=== PATIENT | male | born 1980 | race Caucasian/White ===

== ENCOUNTER 2023-06-07 08:28 | Emergency (ER) | payer OTHER ==
[2023-06-07] MEDS ORDERED: LIDOCAINE 5% PATCH TOPICAL ONE (08:53)
[2023-06-07] MEDS ORDERED: KETOROLAC 15 MG/ML 1 ML VIAL IVP STA (08:53)
--- NOTE | 2023-06-07 09:10 | ED ---
Back Pain HPI - General Chief Complaint: Back Pain/Injury Stated Complaint: lower back pain and upper leg/groin pain Time Seen by Provider: 06/07/23 08:40 Source: patient, RN notes reviewed Mode of arrival: ambulatory Limitations: no limitations - History of Present Illness Initial Comments: This is a 42-year-old male who presents to the emergency department for pain to the right lower back and right groin. States that about a week ago he may have accidentally injured his back at work when moving or lifting something heavy. Pain developed to the right lower back, and this was initially manageable, but became increasingly painful prompting him to go to urgent care 2 days ago. They gave him a steroid shot and started him on prednisone, ibuprofen, and muscle relaxants. States that this did seem to help, however last night and into today he suddenly developed severe pain wrapping around to the right lower quadrant and right groin region. Pain is somewhat worse with movement. Denies any associated nausea or vomiting. Also denies any loss of bowel/bladder control or saddle anesthesia. MD Complaint: back pain - Related Data Previous Rx's Medication Instructions Recorded Ketorolac [Toradol] 10 mg PO Q6HR PRN #15 tab 06/07/23 Lidocaine 5% Patch [Lidoderm 5% 1 patch TOPICAL DAILY PRN #30 patch 06/07/23 Patch] Allergies Allergy/AdvReac Type Severity Reaction Status Date / Time No Known Allergies Allergy Verified 06/07/23 08:39 Review of Systems ROS Statement: Those systems with pertinent positive or pertinent negative responses have been documented in the HPI. ROS Other: All systems not noted in ROS Statement are negative. Past Medical History Past Medical History: No Reported History History of Any Multi-Drug Resistant Organisms: None Reported Past Surgical History: Tonsillectomy Past Psychological History: No Psychological Hx Reported Smoking Status: Never smoker Past Alcohol Use History: Occasional Past Drug Use History: None Reported General Exam Limitations: no limitations General appearance: alert, in no apparent distress Head exam: Present: atraumatic, normocephalic, normal inspection Respiratory exam: Present: normal lung sounds bilaterally. Absent: respiratory distress, wheezes, rales, rhonchi, stridor Cardiovascular Exam: Present: regular rate, normal rhythm, normal heart sounds. Absent: systolic murmur, diastolic murmur, rubs, gallop, clicks GI/Abdominal exam: Present: soft, tenderness (RLQ, right groin), normal bowel sounds. Absent: distended, guarding, rebound, rigid Back exam: Present: tenderness (right lower back). Absent: CVA tenderness (R), CVA tenderness (L) Neurological exam: Present: alert, oriented X3, CN II-XII intact Psychiatric exam: Present: normal affect, normal mood Skin exam: Present: warm, dry, intact, normal color. Absent: rash Course Vital Signs 06/07/23 06/07/23 06/07/23 08:35 10:00 11:00 Temperature 98.6 F 98.5 F Pulse Rate 70 64 62 Respiratory 18 16 16 Rate Blood Pressure 173/104 133/65 137/78 O2 Sat by Pulse 100 99 100 Oximetry Medical Decision Making - Medical Decision Making This is a 42-year-old male who presents to the emergency department for lower back and abdominal pain. Was pt. sent in by a medical professional or institution? @ -No Did you speak to anyone other than the patient for history? @ -No Did you review nursing and triage notes? @ -Yes, and I agree, it is accurate with regards to the patient's symptoms. Were old charts reviewed? @ -No Differential Diagnosis? @ -Differential Back Pain: Strain, zoster, cauda equina syndrome, epidural abscess, vertebral osteomyelitis, discitis, fracture, subluxation, disc herniation, DJD, spinal stenosis, dissection, AAA, pancreatitis, peptic ulcer disease, pyelonephritis, kidney stone, this is not meant to be an all-inclusive list. EKG interpreted by me (3pts min.)? @ -Not obtained X-rays interpreted by me (1pt min.)? @ -Not obtained CT interpreted by me (1pt min.)? @ -Computed tomography scan of the abdomen and pelvis obtained. My interpretation identifies no evidence of bowel wall thickening or free air. U/S interpreted by me (1pt. min.)? @ -Not obtained What testing was considered but not performed? (CT, X-rays, U/S, labs)? Why? @ -None What meds were considered but not given? Why? @ -None Did you discuss the management of the patient with other professionals? @ -No Did you reconcile home meds? @ -No Was smoking cessation discussed for >3mins.? @ -No Was critical care preformed (if so, how long)? @ -No Were there social determinants of health that impacted care today? How? (Homelessness, low income, unemployed, alcoholism, drug addiction, transportation, low edu. Level, literacy, decrease access to med. care, fdc, rehab)? @ -No Was there de-escalation of care discussed even if they declined? (Discuss DNR or withdrawal of care, Hospice)? @ -No What co-morbidities impacted this encounter? (DM, HTN, Smoking, COPD, CAD, Cancer, CVA, Hep., AIDS, mental health diagnosis, sleep apnea, morbid obesity)? @ -Morbid obesity Was patient admitted / discharged? @ -Discharged. Lab work obtained revealing leukocytosis with a white blood cell count of 13, which is likely secondary to steroid use. Lab work was otherwise unremarkable. Computed tomography scan of the abdomen and pelvis obtained. This revealed a gallstone without any other acute process to account for the patient's symptoms. Findings reviewed with the patient. He was not exhibiting any right upper quadrant pain. He was however made aware of this and that if he does, this could very well be the cause and he should have this evaluated. Symptoms were very well controlled with Toradol and a lidocaine patch in the emergency department. Prescription for Toradol and lidocaine patches provided with dosing instructions reviewed. He was otherwise discharged home in stable condition with instructions to have close follow-up with his primary care provider. Undiagnosed new problem with uncertain prognosis? @ -None Drug Therapy requiring intensive monitoring for toxicity (Heparin, Nitro, Insulin, Cardizem)? @ -None Were any procedures done? @ -None Diagnosis/symptom? @ -Lumbar strain Acute, or Chronic, or Acute on Chronic? @ -Acute Uncomplicated (without systemic symptoms) or Complicated (systemic symptoms)? @ -Uncomplicated Side effects of treatment? @ -None Exacerbation, Progression, or Severe Exacerbation] @ -Not applicable Poses a threat to life or bodily function? @ -Unlikely Return precautions reviewed in depth, the patient is instructed to return to the emergency department with any new, worsening, or concerning symptoms. Patient verbalized understanding. This case was discussed in detail with the attending ED physician, Dr. Hatfield. Presentation, findings, and treatment plan discussed in detail as well. - Lab Data Result diagrams: 06/07/23 09:07 06/07/23 09:07 Lab Results 06/07/23 06/07/23 06/07/23 Range/Units 09:07 09:07 09:07 WBC 13.0 H (3.8-10.6) k/uL RBC 4.90 (4.30-5.90) m/uL Hgb 14.7 (13.0-17.5) gm/dL Hct 44.4 (39.0-53.0) % MCV 90.7 (80.0-100.0) fL MCH 30.0 (25.0-35.0) pg MCHC 33.1 (31.0-37.0) g/dL RDW 13.5 (11.5-15.5) % Plt Count 275 (150-450) k/uL MPV 8.2 Neutrophils % 72 % Lymphocytes % 22 % Monocytes % 3 % Eosinophils % 1 % Basophils % 1 % Neutrophils # 9.4 H (1.3-7.7) k/uL Lymphocytes # 2.8 (1.0-4.8) k/uL Monocytes # 0.5 (0-1.0) k/uL Eosinophils # 0.1 (0-0.7) k/uL Basophils # 0.1 (0-0.2) k/uL Sodium 137 (137-145) mmol/L Potassium 4.4 (3.5-5.1) mmol/L Chloride 105 (98-107) mmol/L Carbon Dioxide 22 (22-30) mmol/L Anion Gap 10 mmol/L BUN 17 (9-20) mg/dL Creatinine 0.67 (0.66-1.25) mg/dL Est GFR (CKD-EPI)AfAm >90 (>60 ml/min/1.73 sqM) Est GFR (CKD-EPI)NonAf >90 (>60 ml/min/1.73 sqM) Glucose 102 H (74-99) mg/dL Plasma Lactic Acid Evan (0.7-2.0) mmol/L Calcium 9.2 (8.4-10.2) mg/dL Total Bilirubin 0.9 (0.2-1.3) mg/dL AST 40 (17-59) U/L ALT 38 (4-49) U/L Alkaline Phosphatase 63 (38-126) U/L C-Reactive Protein 0.8 (<1.0) mg/dL Total Protein 7.5 (6.3-8.2) g/dL Albumin 4.3 (3.5-5.0) g/dL Urine Color Light Yellow Urine Appearance Clear (Clear) Urine pH 6.5 (5.0-8.0) Ur Specific [place] >1.050 H (1.001-1.035) Urine Protein Trace H (Negative) Urine Glucose (UA) Negative (Negative) Urine Ketones Negative (Negative) Urine Blood Negative (Negative) Urine Nitrite Negative (Negative) Urine Bilirubin Negative (Negative) Urine Urobilinogen <2.0 (<2.0) mg/dL Ur Leukocyte Esterase Negative (Negative) 06/07/23 Range/Units 09:07 WBC (3.8-10.6) k/uL RBC (4.30-5.90) m/uL Hgb (13.0-17.5) gm/dL Hct (39.0-53.0) % MCV (80.0-100.0) fL MCH (25.0-35.0) pg MCHC (31.0-37.0) g/dL RDW (11.5-15.5) % Plt Count (150-450) k/uL MPV Neutrophils % % Lymphocytes % % Monocytes % % Eosinophils % % Basophils % % Neutrophils # (1.3-7.7) k/uL Lymphocytes # (1.0-4.8) k/uL Monocytes # (0-1.0) k/uL Eosinophils # (0-0.7) k/uL Basophils # (0-0.2) k/uL Sodium (137-145) mmol/L Potassium (3.5-5.1) mmol/L Chloride (98-107) mmol/L Carbon Dioxide (22-30) mmol/L Anion Gap mmol/L BUN (9-20) mg/dL Creatinine (0.66-1.25) mg/dL Est GFR (CKD-EPI)AfAm (>60 ml/min/1.73 sqM) Est GFR (CKD-EPI)NonAf (>60 ml/min/1.73 sqM) Glucose (74-99) mg/dL Plasma Lactic Acid Evan 1.4 (0.7-2.0) mmol/L Calcium (8.4-10.2) mg/dL Total Bilirubin (0.2-1.3) mg/dL AST (17-59) U/L ALT (4-49) U/L Alkaline Phosphatase (38-126) U/L C-Reactive Protein (<1.0) mg/dL Total Protein (6.3-8.2) g/dL Albumin (3.5-5.0) g/dL Urine Color Urine Appearance (Clear) Urine pH (5.0-8.0) Ur Specific [place] (1.001-1.035) Urine Protein (Negative) Urine Glucose (UA) (Negative) Urine Ketones (Negative) Urine Blood (Negative) Urine Nitrite (Negative) Urine Bilirubin (Negative) Urine Urobilinogen (<2.0) mg/dL Ur Leukocyte Esterase (Negative) - Radiology Data Radiology results: report reviewed, image reviewed Disposition Clinical Impression: Strain of lumbar region, Gallstone Disposition: HOME SELF-CARE Instructions (If sedation given, give patient instructions): Low Back Strain (ED), Acute Low Back Pain (ED) Additional Instructions: Return to the emergency department with any new, worsening, or concerning symptoms. You can take the Toradol with Tylenol up to every 6 hours as needed for pain relief. However, if you choose to take the Toradol, do not take any other anti-inflammatories such as ibuprofen, take one or the other. You can apply the lidocaine patches daily as well for additional symptomatic management. Try to avoid excess bending and lifting for the meantime to reduce the risk of symptoms worsening or recurring. Follow up with your primary care provider in 1-2 days. Prescriptions: Lidocaine 5% Patch [Lidoderm 5% Patch] 1 patch TOPICAL DAILY PRN #30 patch PRN Reason: Pain Ketorolac [Toradol] 10 mg PO Q6HR PRN #15 tab PRN Reason: Pain Is patient prescribed a controlled substance at d/c from ED?: No Referrals: Valeria Apple MD [Primary Care Provider] - 1-2 days
[2023-06-07 09:33] LABS: Basophils # (A) 0.1 k/uL (0-0.2); Basophils % (A) 1 %; Eosinophils # (A) 0.1 k/uL (0-0.7); Eosinophils % (A) 1 %; HCT 44.4 % (39.0-53.0); HGB 14.7 gm/dL (13.0-17.5); Lymphocytes # (A) 2.8 k/uL (1.0-4.8); Lymphocytes % (A) 22 %; MCHC 33.1 g/dL (31.0-37.0); MCV 90.7 fL (80.0-100.0); Mean Platelet Volume 8.2; Monocytes # (A) 0.5 k/uL (0-1.0); Monocytes % (A) 3 %; Neutrophils # (A) 9.4 k/uL (1.3-7.7); Neutrophils % (A) 72 %; Platelet Count 275 k/uL (150-450); RDW 13.5 % (11.5-15.5)
[2023-06-07 10:19] LABS: ALT 38 U/L (4-49); African American GFR (CKD) >90 (>60 ml/min/1.73 sqM); Albumin 4.3 g/dL (3.5-5.0); Anion Gap 10 mmol/L; Blood Urea Nitrogen 17 mg/dL (9-20); C Reactive Protein 0.8 mg/dL (<1.0); Calcium 9.2 mg/dL (8.4-10.2); Carbon Dioxide 22 mmol/L (22-30); Chloride 105 mmol/L (98-107); Glucose 102 mg/dL (74-99); Non-African American GFR(CKD) >90 (>60 ml/min/1.73 sqM); Sodium 137 mmol/L (137-145); Total Bilirubin 0.9 mg/dL (0.2-1.3); Total Protein 7.5 g/dL (6.3-8.2)
[2023-06-07 10:20] LABS: Potassium 4.4 mmol/L (3.5-5.1)
[2023-06-07 10:21] LABS: AST 40 U/L (17-59); Alkaline Phosphatase 63 U/L (38-126)
--- NOTE | 2023-06-07 10:54 | CT ---
EXAMINATION TYPE: CT abdomen pelvis w con DATE OF EXAM: 06/07/2023 COMPARISON: NONE HISTORY: 42-year-old male RLQ pain, groin and back pain TECHNIQUE: Contiguous axial scanning of the abdomen and pelvis following administration of 100 ml Iso danielle 300 IV contrast. Delayed images through the kidneys and coronal/sagittal reconstructions perform ed. CT DLP: 2623.3 mGycm Automated exposure control for dose reduction was used. FINDINGS: Heart upper limits of normal in size. No pericardial effusion. Lung bases clear without pleural effus ion. Tiny hiatal hernia. Borderline liver 17.8 cm. Suspect mild fatty infiltration. Portal venous system is patent. No biliary ductal dilatation. A 2.0 cm gallstone. No abnormal gallbladder distention. Adrenal glands, kidneys, spleen with small anterior splenule, and pancreas within normal limits. No dilated small bowel, free fluid, or free air. No mesenteric or retroperitoneal lymphadenopathy. Normal appendix. No significant stool burden. No pericolonic inflammatory change. Bladder partially distended. Prostate gland mildly enlarged at 4.7 cm wide. No abnormal fluid collect ion in the pelvis or pelvic lymphadenopathy. No inguinal or femoral canal hernia seen. Mild degenerative disc disease L2-L3 with disc bulging. IMPRESSION: 1. BORDERLINE HEPATOMEGALY AT 17.8 CM WITH MILD FATTY INFILTRATION. 2. A 2.0 CM GALLSTONE. NO GALLBLADDER INFLAMMATION. 3. NORMAL APPENDIX. NO ACUTE INFLAMMATORY PROCESS IS IDENTIFIED TO EXPLAIN THE PATIENT'S SYMPTOMS. 4. MILD PROSTATOMEGALY OF 4.7 CM WIDE.
[2023-06-07 11:10] LABS: Appearance,Urine Clear (Clear); Bilirubin,Urine Negative (Negative); Blood,Urine Negative (Negative); Color,Urine Light Yellow; Glucose,Urine (UA) Negative (Negative); Ketones,Urine Negative (Negative); Leukocyte Esterase,Urine Negative (Negative); Nitrite,Urine Negative (Negative); PH, Urine 6.5 (5.0-8.0); Protein,Urine Trace (Negative); Urobilinogen,Urine <2.0 mg/dL (<2.0)
[2023-06-07 11:21] LABS: Specific Gravity,Urine >1.050 (1.001-1.035)
[2023-06-07 11:46] VITALS: BP 137/78; PULSE 62; RESP 16; TEMP 98.5
== END 2023-06-07 11:35 | disposition home or self-care (01) ==
LOC: EC 08:28 → SUPCPDRO 08:28 → EC 11:35
DX: S39.012A Strain of muscle, fascia and tendon of lower back, initial encounter (principal); K80.20 Calculus of gallbladder without cholecystitis without obstruction; X50.0XXA Overexertion from strenuous movement or load, initial encounter
CPT/HCPCS: 36415; 80053; 83605; 85025; 86140; 81003; 74177; 99284; 96374; J1885; Q9967